=== PATIENT | male | born 1990 ===

== ENCOUNTER 2025-04-23 21:59 | Emergency (ER) | payer OTHER ==
[2025-04-23] MEDS: Take Home: Amoxicillin/Clavulanate K 875-125 MG Tab, 6 Tab Pack PO ONE (22:31)
[2025-04-23] MEDS: Diphtheria,Pertussis(Acell),Tetanus Vaccine 0.5 ML Syringe IM ONE (22:31)
[2025-04-23] MEDS: Bacitracin Oint 1 GM U/D Packet TOP ONE (22:53)
== END 2025-04-23 22:58 | disposition home or self-care (01) ==
LOC: LL.ED 21:59
DX: S91.332A Puncture wound without foreign body, left foot, initial encounter (principal); Z23 Encounter for immunization; W01.198A Fall on same level from slipping, tripping and stumbling with subsequent striking against other object, initial encounter
CPT/HCPCS: 73630-LT; 90471; 90715; 99283; 99283-25; A9270-GY